=== PATIENT | female | born 1955 | race Caucasian/White ===

== ENCOUNTER → 2016-10-12 | Outpatient (CLI) | payer OTHER ==
[~2016-10-12] MED LIST: CRS10 PO; FLV1 PO; GARLTAB3 PO; MELO15TA3 PO; METHOTREXATE PO; METO25TA3 PO; MVI; NXM/40 PO; OMEG10007 PO; [UNRECOGNIZED DRUG - CODE] PO
[2016-10-12 14:19] LABS: ESTIMATED AVERAGE GLUCOSE 157 mg/dl; HA1C FLAG Normal (Normal)
[2016-10-12 14:20] LABS: AST/SGOT 13 U/L (15-37); BLOOD UREA NITROGEN 12 mg/dl (7-18); BUN/CREATININE RATIO 18.9 (10-20); CALCIUM 8.8 mg/dl (8.5-10.1); CARBON DIOXIDE 28 mmol/L (21-32); CHLORIDE 104 mmol/L (98-107); CREATININE 0.66 mg/dl (0.60-1.20); GLUCOSE 143 mg/dl (70-99); POTASSIUM 4.7 mmol/L (3.5-5.1); SODIUM 138 mmol/L (136-145)
[2016-10-12 14:23] LABS: ALB/GLOB RATIO 0.8 (0.9-2); ALKALINE PHOSPHATASE 62 U/L (45-117); ALT/SGPT 16 U/L (12-78); CHOLESTEROL 159 mg/dl (0-200); CHOLESTEROL/HDL RATIO 2.9; HDL CHOLESTEROL 55 mg/dl; LDL CHOLESTEROL CALCULATED 83 mg/dl; TRIGLYCERIDES 105 mg/dl (0-150); VERY LOW DENSITY LIPOPROT CALC 21 mg/dl
== END | disposition home or self-care (01) ==
LOC: C.LABMFLN 12:01
PROVIDERS: ATTEND Family Medicine
DX: I10 Essential (primary) hypertension (principal); E11.9 Type 2 diabetes mellitus without complications; E78.00 Pure hypercholesterolemia, unspecified; E53.8 Deficiency of other specified B group vitamins

== ENCOUNTER → 2016-12-14 | Outpatient (CLI) | payer OTHER ==
[2016-12-14 14:05] LABS: CREATININE 0.74 mg/dl (0.60-1.20)
== END | disposition home or self-care (01) ==
LOC: C.LABMFLN 11:12
PROVIDERS: ATTEND Family Medicine
DX: M81.8 Other osteoporosis without current pathological fracture (principal)

== ENCOUNTER → 2017-01-16 | Outpatient (CLI) | payer OTHER ==
[2017-01-16 18:08] LABS: ALT/SGPT 23 U/L (12-78); AST/SGOT 21 U/L (15-37); BLOOD UREA NITROGEN 10 mg/dl (7-18); BUN/CREATININE RATIO 16.1 (10-20); CARBON DIOXIDE 27 mmol/L (21-32); CHLORIDE 103 mmol/L (98-107); CREATININE 0.65 mg/dl (0.60-1.20); GLUCOSE 127 mg/dl (70-99); POTASSIUM 4.2 mmol/L (3.5-5.1); SODIUM 137 mmol/L (136-145)
[2017-01-16 18:14] LABS: ALB/GLOB RATIO 0.9 (0.9-2); ALKALINE PHOSPHATASE 62 U/L (45-117)
[2017-01-17 07:06] LABS: ESTIMATED AVERAGE GLUCOSE 171 mg/dl; HA1C FLAG Normal (Normal)
--- NOTE | 2017-01-23 06:44 | CODING QUERY MEDICAL NECESSITY ---
SUPPORTING DIAGNOSIS NEEDED A supporting diagnosis is required for the test/procedure performed on this patient in order for us to be reimbursed by the patient's insurance. Please provide a supporting diagnosis for the following test/procedure listed below next to the test name along with your signature. *If there is no additional diagnosis for this patient that would support the following test/procedure please document that below next to the test/procedure. Test(s)/Procedure(s) that require a supporting diagnosis: * HEMOGLOBIN A1C DIAGNOSIS: Provider Signature: Date: Thank you Radha Leblanc [employer] Once completed, please kindly fax back to [phone] For questions please call [phone]
== END | disposition home or self-care (01) ==
LOC: C.LABMFLN 12:16
PROVIDERS: ATTEND Family Medicine
DX: R60.0 Localized edema (principal); R06.09 Other forms of dyspnea; E11.9 Type 2 diabetes mellitus without complications

== ENCOUNTER → 2017-02-01 | Outpatient (CLI) | payer OTHER ==
[2017-02-01 17:58] LABS: BLOOD UREA NITROGEN 9 mg/dl (7-18); BUN/CREATININE RATIO 11.6 (10-20); CALCIUM 8.6 mg/dl (8.5-10.1); CARBON DIOXIDE 26 mmol/L (21-32); CHLORIDE 104 mmol/L (98-107); CREATININE 0.73 mg/dl (0.60-1.20); GLUCOSE 115 mg/dl (70-99); MAGNESIUM 2.3 mg/dl (1.8-2.4); SODIUM 137 mmol/L (136-145)
== END | disposition home or self-care (01) ==
LOC: C.LABMFLN 13:34
PROVIDERS: ATTEND Family Medicine
DX: R60.0 Localized edema (principal)

== ENCOUNTER → 2017-07-15 | Outpatient (CLI) | payer OTHER ==
[2017-07-15 18:03] LABS: HEMOGLOBIN A1C 7.3 % (4.5-5.6)
[2017-07-15 18:04] LABS: BASO % 0.2 %; BASO ABS # 0.02 K/uL (0-0.2); EOS ABS # 0.11 K/uL (0-0.5); HEMATOCRIT 36.9 % (37-47); HEMOGLOBIN 11.6 g/dL (12.0-16.0); IG# 0.06 K/uL (0.00-0.02); LYMPH % 21.4 %; LYMPH ABS # 2.36 K/uL (1.2-3.4); MEAN CELL VOLUME 88.5 fL (80-100); MEAN CORPUSCULAR HEMOGLOBIN 27.8 pg (25-34); MEAN CORPUSCULAR HGB CONC 31.4 g/dl (32-36); MEAN PLATELET VOLUME 10.1 fL (7.4-10.4); MONO % 8.2 %; NEUT % 68.7 %; NEUT ABS # 7.56 K/uL (1.4-6.5); PLATELET COUNT 244 K/uL (130-400); RED CELL DISTRIBUTION WIDTH CV 16.7 % (11.5-14.5); RED CELL DISTRIBUTION WIDTH SD 53.4 fL (36.4-46.3); WHITE BLOOD COUNT 11.01 K/uL (4.8-10.8)
[2017-07-15 18:19] LABS: ALBUMIN 3.6 gm/dl (3.4-5.0); ALT/SGPT 28 U/L (12-78); AST/SGOT 22 U/L (15-37); BLOOD UREA NITROGEN 13 mg/dl (7-18); CALCIUM 8.6 mg/dl (8.5-10.1); CARBON DIOXIDE 29 mmol/L (21-32); CREATININE 0.75 mg/dl (0.60-1.20); GLUCOSE 130 mg/dl (70-99); POTASSIUM 4.3 mmol/L (3.5-5.1); SODIUM 136 mmol/L (136-145)
[2017-07-15 18:22] LABS: ALKALINE PHOSPHATASE 72 U/L (45-117); CHOLESTEROL 174 mg/dl (0-200); LDL CHOLESTEROL CALCULATED 77 mg/dl; TOTAL PROTEIN 7.6 gm/dl (6.4-8.2)
== END | disposition home or self-care (01) ==
LOC: C.LABMFLN 11:25
PROVIDERS: ATTEND Family Medicine
DX: I10 Essential (primary) hypertension (principal); E11.9 Type 2 diabetes mellitus without complications; E53.8 Deficiency of other specified B group vitamins; R60.0 Localized edema; E55.9 Vitamin D deficiency, unspecified

== ENCOUNTER → 2017-10-25 | Outpatient (CLI) | payer OTHER ==
[2017-10-25 12:57] LABS: BASO % 0.4 %; BASO ABS # 0.03 K/uL (0-0.2); EOS % 1.9 %; EOS ABS # 0.16 K/uL (0-0.5); HEMATOCRIT 34.5 % (37-47); HEMOGLOBIN 11.1 g/dL (12.0-16.0); IG# 0.03 K/uL (0.00-0.02); LYMPH % 15.7 %; LYMPH ABS # 1.33 K/uL (1.2-3.4); MEAN CELL VOLUME 85.4 fL (80-100); MEAN CORPUSCULAR HEMOGLOBIN 27.5 pg (25-34); MEAN CORPUSCULAR HGB CONC 32.2 g/dl (32-36); MEAN PLATELET VOLUME 10.5 fL (7.4-10.4); MONO % 9.2 %; MONO ABS # 0.78 K/uL (0.11-0.59); NEUT % 72.4 %; NEUT ABS # 6.13 K/uL (1.4-6.5); PLATELET COUNT 218 K/uL (130-400); RED CELL DISTRIBUTION WIDTH CV 17.3 % (11.5-14.5); RED CELL DISTRIBUTION WIDTH SD 53.1 fL (36.4-46.3); WHITE BLOOD COUNT 8.46 K/uL (4.8-10.8)
[2017-10-25 13:23] LABS: HEMOGLOBIN A1C 7.4 % (4.5-5.6)
[2017-10-25 14:01] LABS: BLOOD UREA NITROGEN 10 mg/dl (7-18); CALCIUM 8.8 mg/dl (8.5-10.1); CARBON DIOXIDE 26 mmol/L (21-32); CREATININE 0.86 mg/dl (0.60-1.20); GLUCOSE 135 mg/dl (70-99); POTASSIUM 4.5 mmol/L (3.5-5.1); SODIUM 136 mmol/L (136-145)
[2017-10-25 14:02] LABS: TRANSFERRIN 411 mg/dl (200-360)
== END | disposition home or self-care (01) ==
LOC: C.LABMFLN 10:31
PROVIDERS: ATTEND Family Medicine
DX: I10 Essential (primary) hypertension (principal); E11.40 Type 2 diabetes mellitus with diabetic neuropathy, unspecified; D64.9 Anemia, unspecified

== ENCOUNTER → 2017-11-02 | Outpatient (CLI) | payer OTHER ==
[2017-11-04 13:24] LABS: FECAL OCCULT BLOOD #1 POSITIVE (NEGATIVE); FECAL OCCULT BLOOD #2 NEGATIVE (NEGATIVE); FECAL OCCULT BLOOD #3 NEGATIVE (NEGATIVE)
== END | disposition home or self-care (01) ==
LOC: C.LABSPEC 13:05
PROVIDERS: ATTEND Family Medicine
DX: D50.9 Iron deficiency anemia, unspecified (principal)

== ENCOUNTER → 2017-11-26 | Day surgery (SDC) | payer OTHER ==
[2017-11-14 14:52] VITALS: Ht 162.6 cm; Wt 57.7 kg
[~2017-11-26] VITALS: Ht 162.6 cm; Wt 57.7 kg
[~2017-11-26] MED LIST changes: +ALBU18002 INH; +AMLO10TA2 PO; +ANAS1TAB7 PO; +CETI10TA10 PO; +CHOL100010 PO; -CRS10 PO; +DENO60SO; +DICL-201 PO; +FERR325T18 PO; +FLUO40CA8 PO; +FLUT1INH7 INH; +FLUT50SP45 NAE; -FLV1 PO; +FOLI1TAB8 PO; +FURO-85 PO; -GARLTAB3 PO; +GLC/500 PO; +HYDR-5688 PO; +LIDOCAINE HCL 2% 2 ML VIAL (20MG/ML) ONE; -MELO15TA3 PO; -METHOTREXATE PO; +METO-551 PO; -METO25TA3 PO; +MIRT15TA2 PO; +MONT1TAB5 PO; +MTHI100 SC; +MULT-240 PO; -MVI; +NRN/300 PO; -NXM/40 PO; -OMEG10007 PO; +PRLSR20 PO; +PROPOFOL IV EMULSION 10 MG/ML 20 ML VIAL ONE; +QUIN20TA30 PO; +ROSU20TA PO; +SODIUM CHLORIDE 0.9% 500ML 500 ML IV ONE; +UMEC1INH INH; -[UNRECOGNIZED DRUG - CODE] PO
--- NOTE | 2017-11-26 11:24 | Endo History and Physical ---
History & Physical Date of Service: November 26, 2017. Chief Complaint: POSITIVE FECAL BLOOD TEST Referring Physician: DR PETTY History of Present Illness 62 yo CF who presents for colonoscopy secondary to postitive Fecal occult testing. Past Surgical History Hx Cardiac Surgery: No Hx Internal Defibrillator: No Hx Pacemaker: No Hx Abdominal Surgery: Yes (HERNIA REPAIR 195, HYSTER) Hx of Implantable Prosthesis: No Hx Cancer Surgery: Yes (L LUMPECTOMY) Hx Thoracic Surgery: Yes (NECK X2, LUMBAR FUSION, BILT RCR) Hx Orthopedic: Yes (L TKA, R HEEL SX, R FOOT) Hx Urinary Tract Surgery: No Family History Colon CA Social History Smoking Status: Current Every Day Smoker Hx Substance Use: Yes (NORCO PRN) Hx Alcohol Use: No Allergies Coded Allergies: Acetaminophen (Verified Allergy, Mild, GI SYMPTOMS, 11/26/17) Atorvastatin (Verified Allergy, Mild, GI SYMPTOMS, 11/26/17) Erythromycin (Verified Allergy, Mild, RASH, 11/26/17) Ibuprofen (Verified Allergy, Mild, GI SYMPTOMS, 11/26/17) Latex (Verified Allergy, Mild, RASH, 11/26/17) Oxycodone (Verified Allergy, Mild, GI SYMPTOMS, 11/26/17) Current Medications Reported Home Medications Medications Dose Route/Sig Max Daily Dose Days Date Category Dose Instructions Folvite (Folic Acid) 1 Mg Tab 1 Tab PO DAILY 90 11/14/17 Reported Vitamin D (Cholecalciferol) 1,000 Unit Tab 2 Tab PO DAILY 11/14/17 Reported Crestor (Rosuvastatin Calcium) 20 Mg Tab 1.5 Tab PO DAILY 30 11/14/17 Reported Quinapril Hcl 20 Mg Tab 1 Tab PO DAILY 30 11/14/17 Reported Prolia (Denosumab) 60 Mg/Ml Chaya Q6MO 11/14/17 Reported Proair Respiclick (Albuterol Sulfate) 108 Mcg/Act Aer 1-2 Puffs INH Q4 PRN 11/14/17 Reported Prilosec (Omeprazole) 20 Mg Capcr 20 Mg PO DAILY 11/14/17 Reported Remeron Soltab (Mirtazapine) 15 Mg Soltab 15 Mg PO HS 11/14/17 Reported Methotrexate Sodium (Methotrexate Sod) 50 Mg/2 Ml Inj 0.6 Ml SC WK 11/14/17 Reported Glucophage (Metformin Hcl) 500 Mg Tab 500 Mg PO BID 11/14/17 Reported Incruse Ellipta (Umeclidinium [place]) 62.5 Mcg/Inh Inh 1 Puff INH DAILY 11/14/17 Reported [place] 5MG/325MG (Acetaminophen/Hydrocodone Bitart) Tab 1-2 Tab PO QID PRN 30 11/14/17 Reported PRN PAIN Neurontin (Gabapentin) 300 Mg Cap 1 Cap PO DAILY 30 11/14/17 Reported Lasix (Furosemide) 20 Mg Tab 1 Tab PO DAILY 90 11/14/17 Reported Allergy Nasal [place] 24 Ho (Fluticasone Propionate (Nasal)) 50 Mcg/Act Spr 2 Sprays PRASANTH DAILY PRN 11/14/17 Reported Prozac (Fluoxetine HCl) 40 Mg Cap 40 Mg PO BID 11/14/17 Reported Womens One Daily (Multiple Vitamins W/ Minerals) 1 Tab Tab 1 Tab PO DAILY 11/14/17 Reported Ferrous Gluconate 324 Mg Tab 324 Mg PO DAILY 11/14/17 Reported Voltaren (Diclofenac Sodium) 75 Mg Tabcr 75 Mg PO BID PRN 11/14/17 Reported WITH FOOD Montelukast Sodium 10 Mg Tab 1 Tab PO DAILY 30 11/14/17 Reported Zyrtec (Cetirizine Hcl) 10 Mg Tab 1 Tab PO DAILY 30 11/14/17 Reported Breo Ellipta 200-25 Mcg/INH (Fluticasone Furoate-Vilanterol) 1 Inh Inh 1 Puff INH DAILY PRN 11/14/17 Reported Anastrozole 1 Mg Tab 1 Tab PO DAILY 30 11/14/17 Reported Norvasc (Amlodipine Besylate) 10 Mg Tab 1 Tab PO DAILY 30 11/14/17 Reported Lopressor (Metoprolol Tartrate) 50 Mg Tab 1 Tab PO BID 30 11/14/17 Reported Vital Signs Weight (Kilograms): 57.73 Height (Feet): 5 Height (Inches): 4 Date Time Temp Pulse Resp B/P (MAP) Pulse Ox O2 Delivery O2 Flow Rate FiO2 11/26/17 10:59 36.7 53 18 126/64 (84) 96 Room Air Physical Exam General Appearance: WD/WN, no apparent distress Respiratory/Chest: Auscultation: breath sounds normal Cardiovascular: Heart Auscultation: RRR Abdomen: Bowel Sounds: normal Inspection & Palpation: soft, non-distended, no tenderness, guarding & rebound Assessment and Plan Assessment: 62 yo CF who presents for colonoscopy secondary to positive Fecal occult testing. Plan: Proceed with colonoscopy.
--- NOTE | 2017-11-26 11:58 | Discharge Instructions ---
Endoscopy Patient Instructions Date / Procedure(s) Performed November 26, 2017. Colonoscopy Allergy Information Coded Allergies: Acetaminophen (Verified Allergy, Mild, GI SYMPTOMS, 11/26/17) Atorvastatin (Verified Allergy, Mild, GI SYMPTOMS, 11/26/17) Erythromycin (Verified Allergy, Mild, RASH, 11/26/17) Ibuprofen (Verified Allergy, Mild, GI SYMPTOMS, 11/26/17) Latex (Verified Allergy, Mild, RASH, 11/26/17) Oxycodone (Verified Allergy, Mild, GI SYMPTOMS, 11/26/17) Discharge Date / Findings November 26, 2017. Colon polyp Internal hemorrhoids Medication Instructions OK to resume all medications today as prescribed Reported Home Medications Medications Dose Route/Sig Max Daily Dose Days Date Category Dose Instructions Folvite (Folic Acid) 1 Mg Tab 1 Tab PO DAILY 90 11/14/17 Reported Vitamin D (Cholecalciferol) 1,000 Unit Tab 2 Tab PO DAILY 11/14/17 Reported Crestor (Rosuvastatin Calcium) 20 Mg Tab 1.5 Tab PO DAILY 30 11/14/17 Reported Quinapril Hcl 20 Mg Tab 1 Tab PO DAILY 30 11/14/17 Reported Prolia (Denosumab) 60 Mg/Ml Chaya Q6MO 11/14/17 Reported Proair Respiclick (Albuterol Sulfate) 108 Mcg/Act Aer 1-2 Puffs INH Q4 PRN 11/14/17 Reported Prilosec (Omeprazole) 20 Mg Capcr 20 Mg PO DAILY 11/14/17 Reported Remeron Soltab (Mirtazapine) 15 Mg Soltab 15 Mg PO HS 11/14/17 Reported Methotrexate Sodium (Methotrexate Sod) 50 Mg/2 Ml Inj 0.6 Ml SC WK 11/14/17 Reported Glucophage (Metformin Hcl) 500 Mg Tab 500 Mg PO BID 11/14/17 Reported Incruse Ellipta (Umeclidinium [place]) 62.5 Mcg/Inh Inh 1 Puff INH DAILY 11/14/17 Reported [place] 5MG/325MG (Acetaminophen/Hydrocodone Bitart) Tab 1-2 Tab PO QID PRN 30 11/14/17 Reported PRN PAIN Neurontin (Gabapentin) 300 Mg Cap 1 Cap PO DAILY 30 11/14/17 Reported Lasix (Furosemide) 20 Mg Tab 1 Tab PO DAILY 90 11/14/17 Reported Allergy Nasal [place] 24 Ho (Fluticasone Propionate (Nasal)) 50 Mcg/Act Spr 2 Sprays PRASANTH DAILY PRN 11/14/17 Reported Prozac (Fluoxetine HCl) 40 Mg Cap 40 Mg PO BID 11/14/17 Reported Womens One Daily (Multiple Vitamins W/ Minerals) 1 Tab Tab 1 Tab PO DAILY 11/14/17 Reported Ferrous Gluconate 324 Mg Tab 324 Mg PO DAILY 11/14/17 Reported Voltaren (Diclofenac Sodium) 75 Mg Tabcr 75 Mg PO BID PRN 11/14/17 Reported WITH FOOD Montelukast Sodium 10 Mg Tab 1 Tab PO DAILY 30 11/14/17 Reported Zyrtec (Cetirizine Hcl) 10 Mg Tab 1 Tab PO DAILY 30 11/14/17 Reported Breo Ellipta 200-25 Mcg/INH (Fluticasone Furoate-Vilanterol) 1 Inh Inh 1 Puff INH DAILY PRN 11/14/17 Reported Anastrozole 1 Mg Tab 1 Tab PO DAILY 30 11/14/17 Reported Norvasc (Amlodipine Besylate) 10 Mg Tab 1 Tab PO DAILY 30 11/14/17 Reported Lopressor (Metoprolol Tartrate) 50 Mg Tab 1 Tab PO BID 30 11/14/17 Reported Provider Instructions Activity Restrictions - No exercising or heavy lifting for 24 hours. - Do not drink alcohol the day of the procedure. - Do not drive a car or operate machinery until the day after the procedure. - Do not make any important decisions or sign important papers in 24 hours after the procedure. Following Day: - Return to full activity which may include returning to work/school. Diet Start your diet with liquids and light foods (jello, soup, juice, toast). Then eat your usual diet if not nauseated. Treatment For Common After Affects For mild abdominal pain, bloating, or excessive gas: - Rest - Eat lightly - Lie on right side Follow-Up Information Follow-up with DR PETTY as scheduled Anesthesia Information What You Should Know You have had a procedure that required some medicine to reduce anxiety and discomfort. This treatment is called moderate sedation. After receiving the treatment, you may be sleepy, but you will be able to breathe on your own. The effects of the treatment may last for several hours. Follow these instructions along with Activity/Diet recommendations noted above: * Do NOT do anything where dizziness or clumsiness would be dangerous. * Rest quietly at home today, then you can be up and about tomorrow. * Have a responsible person stay with you the rest of today. * You may have had an I.V. today. If so, you may take the dressing off later today. Recommendations Call your doctor if: * Trouble breathing * Continuous vomiting for more than 24 hours * Temperature above 101 degrees * Severe abdominal pain or bloating * Pain not relieved by pain medicine ordered * There is increased drainage or redness from any incision * A large amount of rectal bleeding greater than 2-3 tablespoons. (If you had a polyp/s removed or have hemorrhoids, a small amount of blood - from the rectum is to be expected.) * You have any unanswered questions or concerns. IN THE EVENT OF A SERIOUS EMERGENCY, GO TO THE NEAREST EMERGENCY ROOM Your discharge instructions were prepared by provider King Kemp. Patient Instructions Signature Page Stacia Farias Patient (or Guardian) Signature/Date: I have read and understand the instructions given to me by my caregivers. Caregiver/RN/Doctor Signature/Date: The above-named patient and/or guardian has received patient instructions on this date. + Original Patient Signature Page (only) stays with chart. Please make copy for patient.
--- NOTE | 2017-11-26 12:02 | GI REPORT ---
Patient Name: Stacia Farias Procedure Date: 11/26/2017 11:21 AM Date of : 1955 Admit Type: Outpatient Age: 62 Gender: Female Attending MD: King Kemp DO Procedure: Colonoscopy Providers: King Kemp DO Referring MD: Ant Arriola Indications: Heme positive stool Medicines: Monitored Anesthesia Care Complications: No immediate complications. Estimated Blood Loss: Estimated blood loss: none. Procedure: Pre-Anesthesia Assessment: - Prior to the procedure, a History and Physical was performed, and patient medications and allergies were reviewed. The patient's tolerance of previous anesthesia was also reviewed. The risks and benefits of the procedure and the sedation options and risks were discussed with the patient. All questions were answered, and informed consent was obtained. Prior Anticoagulants: The patient has taken no previous anticoagulant or antiplatelet agents. ASA Grade Assessment: III - A patient with severe systemic disease. After reviewing the risks and benefits, the patient was deemed in satisfactory condition to undergo the procedure. After I obtained informed consent, the scope was passed under direct vision. Throughout the procedure, the patient's blood pressure, pulse, and oxygen saturations were monitored continuously. The scope was introduced through the anus and advanced to the terminal ileum. The colonoscopy was performed without difficulty. The patient tolerated the procedure well. The quality of the bowel preparation was good. The terminal ileum, ileocecal valve, appendiceal orifice, and rectum were photographed. Findings: The perianal and digital rectal examinations were normal. A 3 mm polyp was found in the sigmoid colon. The polyp was sessile. The polyp was removed with a cold biopsy forceps. Resection and retrieval were complete. Non-bleeding internal hemorrhoids were found during retroflexion. The hemorrhoids were small. Impression: - One 3 mm polyp in the sigmoid colon, removed with a cold biopsy forceps. Resected and retrieved. - Non-bleeding internal hemorrhoids. Recommendation: - Resume previous diet. - Continue present medications. - Repeat colonoscopy for surveillance based on pathology results. - Return to primary care physician as previously scheduled. King Kemp DO 11/26/2017 12:02:13 PM This report has been signed electronically. Note Initiated On: 11/26/2017 11:21 AM Number of Addenda: 0 I attest to the content of the Intraoperative Record and orders documented therein, exceptions below {[id number]}
[2017-11-26 12:22] VITALS: BP 147/52; PULSE 53; O2SAT 95
--- NOTE | 2017-11-26 12:47 | Anesthesiology Progress Note ---
Anesthesia Post Op Note Date & Time November 26, 2017 at 12:47 Vital Signs Pain Intensity: 0 Vital Signs Past 12 Hours Date Time Temp Pulse Resp B/P (MAP) Pulse Ox O2 Delivery O2 Flow Rate FiO2 11/26/17 12:22 53 20 147/52 (83) 95 Room Air 11/26/17 12:07 55 20 141/90 (107) 96 Room Air 11/26/17 11:52 50 16 102/49 (66) 96 Room Air 11/26/17 10:59 36.7 53 18 126/64 (84) 96 Room Air Notes Mental Status: alert / awake / arousable, participated in evaluation Pt Amnestic to Procedure: Yes Nausea / Vomiting: adequately controlled Pain: adequately controlled Airway Patency, RR, SpO2: stable & adequate BP & HR: stable & adequate Hydration State: stable & adequate Anesthetic Complications: no major complications apparent
== END | disposition home or self-care (01) ==
LOC: C.GI 10:26
PROVIDERS: ATTEND Internal Medicine
DX: R19.5 Other fecal abnormalities (principal); D12.5 Benign neoplasm of sigmoid colon; K64.8 Other hemorrhoids; J44.9 Chronic obstructive pulmonary disease, unspecified; K21.9 Gastro-esophageal reflux disease without esophagitis; F17.200 Nicotine dependence, unspecified, uncomplicated; Z80.0 Family history of malignant neoplasm of digestive organs; Z98.1 Arthrodesis status; Z96.652 Presence of left artificial knee joint; Z88.6 Allergy status to analgesic agent; Z88.1 Allergy status to other antibiotic agents; Z88.5 Allergy status to narcotic agent; Z91.040 Latex allergy status; M06.9 Rheumatoid arthritis, unspecified; E11.9 Type 2 diabetes mellitus without complications

== ENCOUNTER → 2018-01-24 | Outpatient (CLI) | payer OTHER ==
[~2018-01-24] MED LIST changes: -LIDOCAINE HCL 2% 2 ML VIAL (20MG/ML) ONE; -MTHI100 SC; -PROPOFOL IV EMULSION 10 MG/ML 20 ML VIAL ONE; -SODIUM CHLORIDE 0.9% 500ML 500 ML IV ONE; +[UNRECOGNIZED DRUG - CODE] SC
[2018-01-24 12:51] LABS: BASO % 0.3 %; BASO ABS # 0.02 K/uL (0-0.2); EOS % 3.5 %; EOS ABS # 0.24 K/uL (0-0.5); HEMATOCRIT 39.3 % (37-47); IG# 0.02 K/uL (0.00-0.02); MEAN CORPUSCULAR HEMOGLOBIN 30.1 pg (25-34); MEAN CORPUSCULAR HGB CONC 33.1 g/dl (32-36); MEAN PLATELET VOLUME 11.2 fL (7.4-10.4); MONO % 12.8 %; MONO ABS # 0.88 K/uL (0.11-0.59); NEUT % 64.1 %; NEUT ABS # 4.39 K/uL (1.4-6.5); PLATELET COUNT 179 K/uL (130-400); RED CELL DISTRIBUTION WIDTH SD 56.1 fL (36.4-46.3); WHITE BLOOD COUNT 6.85 K/uL (4.8-10.8)
[2018-01-24 13:26] LABS: ALBUMIN 3.8 gm/dl (3.4-5.0); ALKALINE PHOSPHATASE 61 U/L (45-117); ALT/SGPT 21 U/L (12-78); AST/SGOT 17 U/L (15-37); BLOOD UREA NITROGEN 11 mg/dl (7-18); CARBON DIOXIDE 30 mmol/L (21-32); CHOLESTEROL 148 mg/dl (0-200); CREATININE 0.74 mg/dl (0.60-1.20); GLUCOSE 137 mg/dl (70-99); LDL CHOLESTEROL CALCULATED 79 mg/dl; POTASSIUM 4.3 mmol/L (3.5-5.1); SODIUM 137 mmol/L (136-145); TOTAL PROTEIN 7.6 gm/dl (6.4-8.2); TRANSFERRIN 330 mg/dl (200-360)
[2018-01-24 13:36] LABS: CREATININE RANDOM URINE 63.3 mg/dl
[2018-01-27 06:32] LABS: HEMOGLOBIN A1C 7.1 % (4.5-5.6)
== END | disposition home or self-care (01) ==
LOC: C.LABMFLN 09:28
PROVIDERS: ATTEND Family Medicine
DX: E11.40 Type 2 diabetes mellitus with diabetic neuropathy, unspecified (principal); D64.9 Anemia, unspecified; I10 Essential (primary) hypertension; E78.00 Pure hypercholesterolemia, unspecified; E53.8 Deficiency of other specified B group vitamins; E55.9 Vitamin D deficiency, unspecified